=== PATIENT | male | born 1960 | race Caucasian/White ===

== ENCOUNTER 2020-05-05 13:45 | Inpatient (IN) ==
[2020-05-05] MEDS ORDERED: SODIUM CHLORIDE 0.9% 1,000 ML IV STA (15:04)
[2020-05-05 15:10] LABS: Basophils # 0.1 10*3/uL (0.0-0.2); Basophils % 0.6 % (0.0-0.8); Hematocrit 56.7 VOL% (42.0-52.0); Hemoglobin 18.7 GM/DL (14.0-18.0); Immature Granulocytes Absolute 0.11 #; Lymphocytes # 0.8 10*3/uL (1.4-4.0); Lymphocytes % 7.1 % (21.2-54.2); Mean Corpuscular Volume 88.2 FL (87-102); Mean Platelet Volume 11.9 FL (9.6-12.0); Monocytes % 3.2 % (1.7-12.7); Neutrophils % 88.1 % (38.7-73.9); Platelet Count 227 T/CUMM (130-400); Red Blood Count 6.43 MC/CUMM (3.8-5.5); Red Cell Distribution Width 13.2 % (9.3-17.3); White Blood Count 10.6 T/CUMM (4-12)
[2020-05-05 15:26] LABS: Bilirubin,Urine Negative (Negative); Blood, Urine Moderate mg/dL (Negative); Glucose,Urine (UA) >=500 mg/dL (Negative); Hyaline Casts,Urine 6 /LPF (0-3); Ketones,Urine 80 mg/dL (Negative); Mucus,Urine Occasional /LPF (Occasional); Nitrite,Urine Negative (Negative); Protein,Urine 100 MG/DL; RBC,Urine 74 /HPF (0-4); Urine Appearance CLEAR (Clear); Urine Color Yellow (Yellow); Urine Specific Gravity 1.028 (1.001-1.035); Urine Urobilinogen < 2.0 EU/DL (0.2-1.0); WBC,Urine 2 /HPF (0-6)
[2020-05-05 15:27] LABS: Albumin 4.1 G/DL (3.4-5.0); Bilirubin,Total 0.7 MG/DL (0.2-1.0); Calcium 10.4 MG/DL (8.5-10.1); Osmolality,Calculated 279.9 MOS/KG (273-304); Potassium 4.9 MMOL/L (3.5-5.1); Total Protein 9.4 G/DL (6.4-8.2)
[2020-05-05] MEDS ORDERED: INSULIN REGULAR 100 UNIT/ML IV STA ×2 (15:34→15:35)
[2020-05-05] MEDS ORDERED: SODIUM BICARB INJ 100 MEQ in STERILE WATER INJ 400 ML IV PRN (15:48)
[2020-05-05] MEDS ORDERED: DEXTROSE 50% 25 GM/50 ML VIAL IV PRN ×2 (15:48)
[2020-05-05] MEDS ORDERED: ACETAMINOPHEN 325 MG TABLET PO PRN (15:48)
[2020-05-05] MEDS ORDERED: MAGNESIUM SULF RIDER 2 GM in PREMIX 1 EACH IV PRN (15:48)
[2020-05-05] MEDS ORDERED: SODIUM CHLORIDE 0.9% 1,000 ML IV ONE (15:48)
[2020-05-05] MEDS ORDERED: SODIUM PHOSPHATE INJ 26 MMOL in SODIUM CHLORIDE 0.9% 250 ML IV PRN (15:48)
[2020-05-05] MEDS ORDERED: ONDANSETRON 4 MG/2 ML VIAL IV PRN (15:48)
[2020-05-05] MEDS ORDERED: MAGNESIUM SULF RIDER 4 GM in PREMIX 1 EACH IV PRN (15:48)
[2020-05-05] MEDS ORDERED: INSULIN REGULAR DRIP 100 ML IV SCH (16:00)
[2020-05-05] MEDS ORDERED: hydrALAZINE 20 MG/1 ML VIAL IV PRN (16:24)
[2020-05-05 18:33] LABS: Calcium 9.8 MG/DL (8.5-10.1); Osmolality,Calculated 281.5 MOS/KG (273-304)
[2020-05-05] MEDS: ENOXAPARIN 40 MG/0.4 ML SYRINGE SUBCUT SCH (20:17)
[2020-05-05] MEDS: FAMOTIDINE 20 MG TABLET PO SCH (20:17)
[2020-05-05 20:18] LABS: Calcium 9.5 MG/DL (8.5-10.1); Osmolality,Calculated 282.4 MOS/KG (273-304); Potassium 4.7 MMOL/L (3.5-5.1)
[2020-05-05] MEDS ORDERED: SODIUM CHLORIDE 0.9% 1,000 ML IV SCH (20:48)
[2020-05-05 21:20] LABS: ABG Base Excess -11.6 MMOL/L (-2.5-2.5); ABG HCO3 15.6 MMOL/L (20-26); ABG Oxygen Saturation 98.7 % (95-100); ABG PCO2 24.7 MM HG (35-48); ABG PH 7.323 (7.35-7.45); ABG TCO2 10.9 MMOL/L (23-27)
[2020-05-05] MEDS: SODIUM CHLORIDE 0.9% 1,000 ML IV SCH ×3 (21:48→23:48)
[2020-05-06 00:30] LABS: Calcium 8.1 MG/DL (8.5-10.1); Osmolality,Calculated 280.8 MOS/KG (273-304); Potassium 3.4 MMOL/L (3.5-5.1)
[2020-05-06] MEDS: DEXTROSE 5% NACL 0.9% 1,000 ML IV SCH ×2 (01:40→10:13)
[2020-05-06] MEDS: POTASSIUM CHLORIDE RIDER 10 MEQ in PREMIX 1 EACH IV PRN ×3 (01:53→08:58)
[2020-05-06] MEDS: SODIUM CHLOR 0.45% KCL 20 MEQ 20 MEQ/1,000 ML BAG IV SCH ×2 (04:14→10:13)
[2020-05-06 04:29] LABS: Basophils % 0.4 % (0.0-0.8); Eosinophils # 0.1 10*3/uL (0.0-0.87); Eosinophils % 1.3 % (0.00-10.9); Hematocrit 38.7 VOL% (42.0-52.0); Immature Granulocytes % 0.7 %; Immature Granulocytes Absolute 0.06 #; Lymphocytes # 1.9 10*3/uL (1.4-4.0); Lymphocytes % 20.8 % (21.2-54.2); Mean Corpuscular HGB Conc 34.4 GM/DL (32-36); Mean Corpuscular Volume 85.4 FL (87-102); Neutrophils % 67.8 % (38.7-73.9); Red Cell Distribution Width 12.6 % (9.3-17.3); White Blood Count 9.1 T/CUMM (4-12)
[2020-05-06 04:32] LABS: Red Blood Count 4.53 MC/CUMM (3.8-5.5)
[2020-05-06 04:33] LABS: Hemoglobin 13.3 GM/DL (14.0-18.0); Platelet Count 141 T/CUMM (130-400)
[2020-05-06 04:42] LABS: Calcium 8.1 MG/DL (8.5-10.1); Osmolality,Calculated 284.7 MOS/KG (273-304); Potassium 3.5 MMOL/L (3.5-5.1); Risk Ratio 3.4
[2020-05-06] MEDS: DEXT 5% NACL 0.45% KCL 20 MEQ 20 MEQ/1,000 ML BAG IV SCH ×2 (04:45→10:15)
[2020-05-06 04:48] LABS: Platelet Estimate Adequate
[2020-05-06 08:11] LABS: Calcium 8.4 MG/DL (8.5-10.1); Osmolality,Calculated 278.5 MOS/KG (273-304); Potassium 3.4 MMOL/L (3.5-5.1)
[2020-05-06] MEDS ORDERED: SODIUM CHLORIDE 0.45% 1,000 ML IV SCH (08:48)
[2020-05-06] MEDS: FAMOTIDINE 20 MG TABLET PO SCH ×2 (08:58→21:53)
[2020-05-06] MEDS ORDERED: GLUCAGON 1 MG VIAL IM PRN (10:03)
[2020-05-06] MEDS ORDERED: POTASSIUM CHLORIDE 20 MEQ TABLET PO ONE (10:35)
[2020-05-06] MEDS ORDERED: INSULIN ASPART PROTAMINE/ASPART 70/30 100 UNIT/ML SUBCUT SCH (11:30)
[2020-05-06] MEDS: INSULIN LISPRO 100 UNIT/ML SUBCUT SCH ×3 (12:08→21:52)
[2020-05-06] MEDS: GLIMEPIRIDE 2 MG TABLET PO SCH (16:38)
[2020-05-06] MEDS: ENOXAPARIN 40 MG/0.4 ML SYRINGE SUBCUT SCH (21:52)
[2020-05-06] MEDS: ATORVASTATIN 20 MG TABLET PO SCH (21:53)
[2020-05-06] MEDS: INSULIN GLARGINE 100 UNIT/ML SUBCUT SCH (21:53)
[2020-05-07 06:43] LABS: Osmolality,Calculated 286.3 MOS/KG (273-304); Potassium 3.2 MMOL/L (3.5-5.1)
[2020-05-07] MEDS ORDERED: POTASSIUM CHLORIDE 20 MEQ TABLET PO ONE (09:23)
[2020-05-07] MEDS: INSULIN LISPRO 100 UNIT/ML SUBCUT SCH ×4 (10:23→20:43)
[2020-05-07] MEDS: GLIMEPIRIDE 2 MG TABLET PO SCH ×2 (10:56→16:50)
[2020-05-07] MEDS: FAMOTIDINE 20 MG TABLET PO SCH ×2 (10:57→20:41)
[2020-05-07] MEDS: ATORVASTATIN 20 MG TABLET PO SCH (20:41)
[2020-05-07] MEDS: ENOXAPARIN 40 MG/0.4 ML SYRINGE SUBCUT SCH (20:41)
[2020-05-07] MEDS: INSULIN GLARGINE 100 UNIT/ML SUBCUT SCH (20:42)
[2020-05-08] MEDS ORDERED: POTASSIUM CHLORIDE 20 MEQ TABLET PO PRN (07:34)
[2020-05-08] MEDS: INSULIN LISPRO 100 UNIT/ML SUBCUT SCH (07:45)
[2020-05-08 07:46] VITALS: BP 155/79
[2020-05-08] MEDS: GLIMEPIRIDE 2 MG TABLET PO SCH (08:10)
[2020-05-08] MEDS: FAMOTIDINE 20 MG TABLET PO SCH (09:29)
== END 2020-05-08 11:35 | disposition home or self-care (01) | DRG 638 ==
LOC: N.ED 13:45 → SUATTDRO 15:48 → N.EDINP 15:48 → N.CC 17:16 → N.4E 05-06 15:40
PROVIDERS: ADMIT Family Medicine; ATTEND Family Medicine